=== PATIENT | female | born 2000 | race Caucasian/White ===

== ENCOUNTER → 2018-05-02 | Outpatient (CLI) | payer OTHER ==
--- NOTE | 2018-05-02 09:34 | CARD ---
MR#: [id number] Date of Study: 05/02/2018 Ordering Physician: LALO ANDERSON, Referring Physician: LALO ANDERSON, Tech: Lalitha Mckeon BALJINDER APPROVED REPORT EXAM: Two-dimensional and M-mode echocardiogram with Doppler and color Doppler. Other Information Quality : AverageHR: 85bpm Rhythm : NSR INDICATION Tachycardia 2D DIMENSIONS RVDd2.7 (2.9-3.5cm)Left Atrium(2D)3.4 (1.6-4.0cm) IVSd0.6 (0.7-1.1cm)Aortic Root(2D)2.4 (2.0-3.7cm) LVDd4.8 (3.9-5.9cm)LVOT Diameter1.9 (1.8-2.4cm) PWd0.8 (0.7-1.1cm)LVDs3.0 (2.5-4.0cm) FS (%) 37.6 %SV71.4 ml LVEF(%)67.6 (>50%) M-Mode DIMENSIONS Left Atrium(MM)3.40 (2.5-4.0cm)Aortic Root2.76 (2.2-3.7cm) Aortic Valve AoV Peak Damian.146.9cm/sAoV VTI26.0cm AO Peak GR.8.6mmHgLVOT Peak Damian.97.1cm/s AO Mean GR.5mmHgAVA (VMAX)1.86cm2 MINO (VTI)2.10cm2 Mitral Valve MV E Ufhtvttz99.1cm/sMV E Peak Gr.3mmHg MV DECEL [id number] A Bohewggy39.1cm/s MV E Mean Gr.1mmHgE/A Ratio1.6 MV A [id number] Pulmonary Valve PV Peak Ibeqlags036.7cm/s Pulmonary Vein S1 Tylgeeoq16.7cm/sD2 Gzyknfvv64.0cm/s PVa [id number] LEFT VENTRICLE The left ventricle is normal size. There is normal left ventricular wall thickness. The left ventricu lar systolic function is normal. The Ejection Fraction is 60-65%. There is normal LV segmental wall m otion. The left ventricular diastolic function and filling is normal for age. RIGHT VENTRICLE The right ventricle is normal size. There is normal right ventricular wall thickness. The right ventr icular systolic function is normal. ATRIA The left atrium size is normal. The right atrium size is normal. The interatrial septum is intact wit h no evidence for an atrial septal defect or patent foramen ovale as noted on 2-D or Doppler imaging. AORTIC VALVE The aortic valve is normal in structure and function. The aortic valve is trileaflet. Doppler and Col or Flow revealed no significant aortic regurgitation. There is no significant aortic valvular stenosi s. MITRAL VALVE The mitral valve is normal in structure and function. There is no evidence of mitral valve prolapse. There is no mitral valve stenosis. Doppler and Color Flow revealed no mitral valve regurgitation note d. TRICUSPID VALVE The tricuspid valve is normal in structure and function. Doppler and Color Flow revealed no tricuspid valve regurgitation noted. There is no tricuspid valve prolapse or vegetation. There is no tricuspid valve stenosis. PULMONIC VALVE The pulmonary valve is normal in structure and function. Doppler and Color Flow revealed no pulmonic valvular regurgitation. There is no pulmonic valvular stenosis. GREAT VESSELS The aortic root is normal in size. The ascending aorta is normal in size. PERICARDIAL EFFUSION There is no evidence of significant pericardial effusion. Critical Notification Critical Value: No <Conclusion> The left ventricular systolic function is normal. The Ejection Fraction is 60-65%. There is normal LV segmental wall motion. No significant valvular abnormalities. There is no evidence of significant pericardial effusion. Signed by : Joes Alfredo Gallegos, Electronically Approved : 05/02/2018 09:33:25
== END | disposition home or self-care (01) ==
LOC: ECHO 08:29
PROVIDERS: ATTEND Family Medicine
DX: R00.0 Tachycardia, unspecified (principal); Z82.49 Family history of ischemic heart disease and other diseases of the circulatory system
CPT/HCPCS: 93306

== ENCOUNTER → 2021-02-11 | Outpatient (CLI) | payer OTHER | LOC: SPEC 12:26 | PROVIDERS: ATTEND Obstetrics & Gynecology | DX: L29.8 Other pruritus (principal) | CPT/HCPCS: Q0111 ==